=== PATIENT | female | born 1965 | race Caucasian/White ===

== ENCOUNTER 2019-09-07 08:02 | Emergency (ER) | payer OTHER ==
[2019-09-07 08:12] VITALS: BP 122/74
--- NOTE | 2019-09-07 08:21 | UC ---
Hand/Wrist HPI - HPI Summary HPI Summary: Patient is a 53yo female presenting with L wrist pain that began last night when she hit her wrist on a metal bar attached to her laundry basket. Describes pain as sharp and worse with any movement. Denies numbness and tingling. Denies swelling and bruising. Notes decreased ROM due to pain. Patient states pain has not improved despite ice and aspirin. - History Of Current Complaint Chief Complaint: UCUpperExtremity Stated Complaint: WRIST INJURY Hx Obtained From: Patient Onset/Duration: Sudden Onset, Lasting Hours Severity Currently: Severe Pain Intensity: 8 Pain Scale Used: 0-10 Numeric - Allergies/Home Medications Allergies/Adverse Reactions: Allergies Allergy/AdvReac Type Severity Reaction Status Date / Time No Known Allergies Allergy Verified 09/07/19 08:12 Home Medications: Home Medications Ibuprofen 400 mg PO 09/07/19 [History] PMH/Surg Hx/FS Hx/Imm Hx - Surgical History Surgical History: None - Family History Known Family History: Positive: Unknown, Non-Contributory - Social History Alcohol Use: Rare Substance Use Type: None Smoking Status (MU): Never Smoked Tobacco Review of Systems All Other Systems Reviewed And Are Negative: No Skin: Negative: Bruising Respiratory: Positive: Negative Cardiovascular: Positive: Negative Neurovascular: Positive: Negative Musculoskeletal: Positive: Arthralgia - L wrist, Decreased ROM. Negative: Edema Neurological: Negative: Paresthesia, Numbness Physical Exam Triage Information Reviewed: Yes Appearance: Well-Appearing, No Pain Distress, Well-Nourished Vital Signs: Initial Vital Signs Temp 98.7 F 09/07/19 08:08 Pulse 83 09/07/19 08:08 Resp 18 09/07/19 08:08 BP 122/74 09/07/19 08:08 Pulse Ox 98 09/07/19 08:08 Vital Signs Reviewed: Yes Eyes: Positive: Conjunctiva Clear ENT: Positive: Hearing grossly normal Neck: Positive: Supple Respiratory: Positive: No respiratory distress Cardiovascular: Positive: Pulses Normal - strong radial pulses b/l, Brisk Capillary Refill Musculoskeletal: Positive: Strength Intact, No Edema, ROM Limited @ - L wrist flexion and extension d/t pain, Other: - tenderness to palpation over radial aspect L wrist Neurological Exam: Other - sensation grossly intact Neurological: Positive: Alert Psychological: Positive: Age Appropriate Behavior Skin Exam: Normal - no erythema or ecchymosis Diagnostics - Radiology L wrist Radiology Interpretation Completed By: Radiologist Summary of Radiographic Findings: IMPRESSION: NO FRACTURE OF THE WRIST IS NOTED. Hand/Wrist Course/Dx - Course Course Of Treatment: Discussed negative xrays with patient. Instructed to continue with symptomatic treatment, including use of cock up splint. Instructed to follow up with PCP or ortho if pain persists. Patient voiced understanding and agreed with treatment plan. - Differential Dx/Diagnosis Provider Diagnosis: Wrist pain, acute Discharge ED - Sign-Out/Discharge Documenting (check all that apply): Patient Departure All imaging exams completed and their final reports reviewed: Yes - Discharge Plan Condition: Stable Disposition: HOME Patient Education Materials: Wrist Injury (ED) Referrals: Chava Diehl MD [Medical Doctor] - If Needed Sunita Sanders MD [Primary Care Provider] - If Needed Additional Instructions: As discussed, the xrays of the wrist did not show any fractures. Rest, ice, elevate, and use the wrist splint to help relieve pain. You may also use over the counter pain medications as directed for pain relief. If pain does not resolve, follow up with your PCP or orthopedics as listed below. Go to the emergency room if pain worsens, the hand becomes cold and numb, or you are unable to move the wrist or hand. - Billing Disposition and Condition Condition: STABLE Disposition: Home
== END 2019-09-07 08:58 | disposition home or self-care (01) ==
LOC: UCEAST 08:02
DX: M25.532 Pain in left wrist (principal)
CPT/HCPCS: 99212; G0463